=== PATIENT | male | born 1950 | race Caucasian/White ===

== ENCOUNTER 2020-10-02 11:12 | Inpatient (IN) | payer MEDICARE, OTHER ==
[~2020-10-02] VITALS: Ht 170.2 cm; Wt 61.7 kg
[~2020-10-02 11:12] MED LIST: ASPIRIN EC81 MG PO; ATORVASTATIN CA20 MG PO; BACTRIM 400-801 EACH PO; HYDRALAZINE HCL25 MG PO; KEFLEX CAP 500500 MG PO; LOPRESSOR 25 MG25 MG PO; NORVASC10 MG PO; PANTOPRAZOLE SO40 MG PO; PROSCAR5 MG PO
[2020-10-02 13:50] LABS: HEMOGLOBIN 9.5 gm/dl (14.0-17.5); RED BLOOD COUNT 3.69 M/UL (4.20-5.50); WHITE BLOOD COUNT 15.2 K/UL (4.5-11.0)
[2020-10-02] MEDS ORDERED: RENVELA800 MG PO (20:33)
[2020-10-03 04:46] LABS: HEMOGLOBIN 8.9 gm/dl (14.0-17.5); RED BLOOD COUNT 3.48 M/UL (4.20-5.50); WHITE BLOOD COUNT 11.6 K/UL (4.5-11.0)
[2020-10-06 03:37] LABS: HEMOGLOBIN 9.2 gm/dl (14.0-17.5); RED BLOOD COUNT 3.56 M/UL (4.20-5.50); WHITE BLOOD COUNT 11.9 K/UL (4.5-11.0)
[2020-10-07 11:23] LABS: HEMOGLOBIN 9.6 gm/dl (14.0-17.5); RED BLOOD COUNT 3.77 M/UL (4.20-5.50); WHITE BLOOD COUNT 14.6 K/UL (4.5-11.0)
[2020-10-08 02:37] LABS: HEMOGLOBIN 8.9 gm/dl (14.0-17.5); RED BLOOD COUNT 3.47 M/UL (4.20-5.50); WHITE BLOOD COUNT 12.9 K/UL (4.5-11.0)
[2020-10-08] MEDS ORDERED: LIDOCAINE PAIN1 EACH TOP (13:56)
[2020-10-08] MEDS ORDERED: AUGMENTIN 500-1 EACH PO (13:56)
[2020-10-08] MEDS ORDERED: TYLENOL 8 HOUR650 MG PO (13:59)
== END 2020-10-08 17:16 | disposition home or self-care (01) | DRG 193 ==
LOC: ER1 11:12 → MED SURG 4 18:14 → CDU 18:14 → MED SURG 4 10-03 00:10
PROVIDERS: Family Medicine; Internal Medicine; ADMIT Internal Medicine
PROC: 5A1D70Z Performance of Urinary Filtration, Intermittent, Less than 6 Hours Per Day (ICD-10-PCS; principal; 2020-10-04)
PROC: 5A1D70Z Performance of Urinary Filtration, Intermittent, Less than 6 Hours Per Day (ICD-10-PCS; 2020-10-06)
DX: J18.9 Pneumonia, unspecified organism (principal); J96.21 Acute and chronic respiratory failure with hypoxia; N18.6 End stage renal disease; I13.2 Hypertensive heart and chronic kidney disease with heart failure and with stage 5 chronic kidney disease, or end stage renal disease; I50.32 Chronic diastolic (congestive) heart failure; Z20.822 Contact with and (suspected) exposure to COVID-19; R07.89 Other chest pain; M25.512 Pain in left shoulder; E11.22 Type 2 diabetes mellitus with diabetic chronic kidney disease; E87.5 Hyperkalemia; I48.0 Paroxysmal atrial fibrillation; I25.10 Atherosclerotic heart disease of native coronary artery without angina pectoris; M19.90 Unspecified osteoarthritis, unspecified site; M75.102 Unspecified rotator cuff tear or rupture of left shoulder, not specified as traumatic; R77.8 Other specified abnormalities of plasma proteins; D64.9 Anemia, unspecified; D50.9 Iron deficiency anemia, unspecified; Z82.49 Family history of ischemic heart disease and other diseases of the circulatory system; Z83.3 Family history of diabetes mellitus; Z80.8 Family history of malignant neoplasm of other organs or systems; Z99.81 Dependence on supplemental oxygen; Z95.1 Presence of aortocoronary bypass graft; Z84.89 Family history of other specified conditions; Z79.82 Long term (current) use of aspirin; Z79.899 Other long term (current) drug therapy
CPT/HCPCS: 36415; 36600; 70450; 71045; 71046; 73030; 80048; 80053; 82550; 82553; 82803; 83874; 83880; 84439; 84443; 84484; 85025; 85027; 85610; 87081; 90935; 93005; 94640; 94664; 94760; 96365; 96366; 96367; 99285; J0696; J1644; J2405; J2543; J7030; U0002

== ENCOUNTER → 2020-11-16 | Outpatient (CLI) | payer MEDICARE, OTHER ==
[~2020-11-16] MED LIST changes: +8 HOUR650 MG PO; +AUGMENTIN 500-1 EACH PO; +ELIQUIS2.5 MG PO; +FINASTERIDE5 MG PO; +LIDOCAINE PAIN1 EACH TOP; +LOPRESSOR 50 MG50 MG PO; +RENVELA800 MG PO; +TYLENOL 8 HOUR650 MG PO; +VENELEX OINTMEN60 GM TOP
[2020-11-16 15:20] LABS: HEMOGLOBIN 11.4 gm/dl (14.0-17.5); RED BLOOD COUNT 4.09 M/UL (4.20-5.50); WHITE BLOOD COUNT 13.8 K/UL (4.5-11.0)
== END ==
LOC: LAB 13:03
PROVIDERS: Internal Medicine Cardiovascular Disease
DX: I48.92 Unspecified atrial flutter (principal); I48.0 Paroxysmal atrial fibrillation; I25.10 Atherosclerotic heart disease of native coronary artery without angina pectoris; J90 Pleural effusion, not elsewhere classified; Z01.812 Encounter for preprocedural laboratory examination; Z20.822 Contact with and (suspected) exposure to COVID-19
CPT/HCPCS: 36415; 71046; 80048; 85025; U0003

== ENCOUNTER 2020-11-20 09:21 | Outpatient (CLI) | payer MEDICARE, OTHER ==
[~2020-11-20] VITALS: Ht 170.2 cm; Wt 57.6 kg
[~2020-11-20 09:21] MED LIST changes: -8 HOUR650 MG PO; -ELIQUIS2.5 MG PO; -FINASTERIDE5 MG PO; -LOPRESSOR 50 MG50 MG PO; -VENELEX OINTMEN60 GM TOP
[2020-11-20] MEDS ORDERED: ELIQUIS2.5 MG PO (10:37)
[2020-11-20] MEDS ORDERED: LOPRESSOR 50 MG50 MG PO (10:38)
[2020-11-20] MEDS ORDERED: FINASTERIDE5 MG PO (10:38)
== END 2020-11-21 11:48 | disposition home or self-care (01) ==
LOC: CATH 09:21 → PROG CARE 17:08 → CATH 11-21 11:48
DX: I48.3 Typical atrial flutter (principal); I48.0 Paroxysmal atrial fibrillation; I25.10 Atherosclerotic heart disease of native coronary artery without angina pectoris; I12.9 Hypertensive chronic kidney disease with stage 1 through stage 4 chronic kidney disease, or unspecified chronic kidney disease; E11.22 Type 2 diabetes mellitus with diabetic chronic kidney disease; N18.9 Chronic kidney disease, unspecified; I49.5 Sick sinus syndrome; E11.51 Type 2 diabetes mellitus with diabetic peripheral angiopathy without gangrene; F41.9 Anxiety disorder, unspecified; K21.9 Gastro-esophageal reflux disease without esophagitis; I25.2 Old myocardial infarction; Z87.891 Personal history of nicotine dependence; Z95.1 Presence of aortocoronary bypass graft; Z82.49 Family history of ischemic heart disease and other diseases of the circulatory system; Z98.890 Other specified postprocedural states; Z88.5 Allergy status to narcotic agent; Z88.8 Allergy status to other drugs, medicaments and biological substances; Z79.01 Long term (current) use of anticoagulants; Z79.899 Other long term (current) drug therapy
CPT/HCPCS: 93005; 93609; 93620; 93621; 94760; 99152; 99153; C1730; C1733; C1766; J1200; J1644; J2250; J3010; J7040

== ENCOUNTER 2021-02-01 15:05 | Observation (INO) | payer MEDICARE, OTHER ==
[~2021-02-01] VITALS: Ht 172.7 cm; Wt 49.5 kg
[~2021-02-01 15:05] MED LIST changes: +ELIQUIS2.5 MG PO; +FINASTERIDE5 MG PO; +LOPRESSOR 50 MG50 MG PO
[2021-02-01 16:07] LABS: HEMOGLOBIN 10.9 gm/dl (14.0-17.5); RED BLOOD COUNT 3.88 M/UL (4.20-5.50); WHITE BLOOD COUNT 12.6 K/UL (4.5-11.0)
[2021-02-02 02:59] LABS: HEMOGLOBIN 11.3 gm/dl (14.0-17.5); RED BLOOD COUNT 3.99 M/UL (4.20-5.50); WHITE BLOOD COUNT 12.3 K/UL (4.5-11.0)
[2021-02-03 05:58] LABS: HEMOGLOBIN 11.4 gm/dl (14.0-17.5); RED BLOOD COUNT 4.1 M/UL (4.20-5.50); WHITE BLOOD COUNT 8.7 K/UL (4.5-11.0)
[2021-02-03 10:10] LABS: HBSAG SCREEN Negative (Negative); HEP A AB, IGM Negative (Negative); HEP B CORE AB, IGM Negative (Negative); HEP C VIRUS AB <0.1 (0.0-0.9)
== END 2021-02-03 16:30 | disposition home or self-care (01) ==
LOC: ER1 15:05 → CDU 18:38 → MED SURG 4 21:00
PROVIDERS: Emergency Medicine; Internal Medicine Nephrology; ADMIT Internal Medicine
DX: R07.89 Other chest pain (principal); I13.2 Hypertensive heart and chronic kidney disease with heart failure and with stage 5 chronic kidney disease, or end stage renal disease; E11.22 Type 2 diabetes mellitus with diabetic chronic kidney disease; N18.6 End stage renal disease; I50.32 Chronic diastolic (congestive) heart failure; D63.1 Anemia in chronic kidney disease; I25.10 Atherosclerotic heart disease of native coronary artery without angina pectoris; I48.0 Paroxysmal atrial fibrillation; E78.5 Hyperlipidemia, unspecified; N40.0 Benign prostatic hyperplasia without lower urinary tract symptoms; D50.9 Iron deficiency anemia, unspecified; R77.8 Other specified abnormalities of plasma proteins; D72.829 Elevated white blood cell count, unspecified; J96.11 Chronic respiratory failure with hypoxia; R07.81 Pleurodynia; R44.3 Hallucinations, unspecified; R64 Cachexia; Z68.1 Body mass index [BMI] 19.9 or less, adult; Z20.822 Contact with and (suspected) exposure to COVID-19; Z99.2 Dependence on renal dialysis; Z95.1 Presence of aortocoronary bypass graft; Z79.01 Long term (current) use of anticoagulants; Z79.899 Other long term (current) drug therapy; Z88.5 Allergy status to narcotic agent; Z88.8 Allergy status to other drugs, medicaments and biological substances
CPT/HCPCS: ECHO; 36415; 71045; 80048; 80053; 80074; 82550; 82553; 83874; 83880; 84484; 85025; 85027; 87040; 90935; 93005; 93306; 99285; G0257; G0378; J7030; U0002

== ENCOUNTER → 2021-02-28 | Outpatient (CLI) | payer MEDICARE, OTHER ==
[~2021-02-28] MED LIST changes: +8 HOUR650 MG PO; +VENELEX OINTMEN60 GM TOP
== END ==
LOC: CT 08:00
DX: K55.069 Acute infarction of intestine, part and extent unspecified (principal); R18.8 Other ascites; J90 Pleural effusion, not elsewhere classified
CPT/HCPCS: 36415; 82565; Q9967

== ENCOUNTER 2021-03-16 07:13 | Inpatient (IN) | payer OTHER ==
[~2021-03-16] VITALS: Ht 172.7 cm; Wt 56.5 kg
[~2021-03-16 07:13] MED LIST changes: -8 HOUR650 MG PO; -VENELEX OINTMEN60 GM TOP
[2021-03-16 08:38] LABS: RED BLOOD COUNT 3.74 M/UL (4.20-5.50); WHITE BLOOD COUNT 9.8 K/UL (4.5-11.0)
[2021-03-16] MEDS ORDERED: 8 HOUR650 MG PO (11:07)
[2021-03-16] MEDS ORDERED: VENELEX OINTMEN60 GM TOP (11:08)
[2021-03-16 18:09] LABS: BORDETELLA PARAPERTUSSIS Not Detected (Not Detectd); BORDETELLA PERTUSSIS Not Detected (Not Detectd); CORONAVIRUS HKU1 Not Detected (Not Detectd); CORONAVIRUS NL63 Not Detected (Not Detectd); CORONOAVIRUS 229E Not Detected (Not Detectd); HUMAN METAPNEUMOVIRUS Not Detected (Not Detectd); HUMAN RHINOVIRUS/ENTEROVIRUS Not Detected (Not Detectd); INFLUENZA A Not Detected (Not Detectd); INFLUENZA B Not Detected (Not Detectd); PARAINFLUENZA VIRUS 1 Not Detected (Not Detectd); PARAINFLUENZA VIRUS 2 Not Detected (Not Detectd); PARAINFLUENZA VIRUS 3 Not Detected (Not Detectd); PARAINFLUENZA VIRUS 4 Not Detected (Not Detectd); RESPIRATORY SYNCYTIAL VIRUS Not Detected (Not Detectd)
[2021-03-16 18:10] LABS: CHLAMYDIA PNEUMONIAE Not Detected (Not Detectd); MYCOPLASMA PNEUMONIAE Not Detected (Not Detectd)
[2021-03-16 19:07] LABS: CORONAVIRUS OC43 DETECTED (Not Detectd); SARS-CoV-2 NOT DETECTED (Not Detectd)
[2021-03-17 03:52] LABS: HEMOGLOBIN 11.1 gm/dl (14.0-17.5); RED BLOOD COUNT 3.7 M/UL (4.20-5.50); WHITE BLOOD COUNT 11.3 K/UL (4.5-11.0)
--- NOTE | 2021-03-17 10:38 | NUR ---
PT CONSENT TO BE SIGNED BY PT IN AM. ORDERED US GUIDED PLEURAL CATHETER PLACEMENT PER DR SMITH. PER HOLD ASA, DRAW PT, PTT, INR, PLT IN AM.
--- NOTE | 2021-03-17 13:29 | NUR ---
INFORM DR George THAT PATIENTS IS HERE AND WOULD BE THE ONE TO SIGN ANY CONSENTS FOR THE PATIENT. HE STATES HE WILL BE ON THE FLOOR SOON TO SPEAK TO HER.
--- NOTE | 2021-03-17 16:31 | NUR ---
PT SEEN BY DR MELISSA THIS EVENING. STATES HE CAN NOT TOLERATE DIALYSIS PRESENTLY. STATES HE WANTS A RENAL DIET FOR NOW THEN NPO AFTER MIDNIGHT. INFORM DR SALINAS HE HAS HYDRONEPHROSIS AND PASS THIS INFORMATION TO THE UROLOGIST. PT STILL RECEIVING CBI. MESSAGE SENT TO DR SALINAS
[2021-03-18 02:35] LABS: HEMOGLOBIN 10.2 gm/dl (14.0-17.5); RED BLOOD COUNT 3.47 M/UL (4.20-5.50)
[2021-03-18 02:43] LABS: WHITE BLOOD COUNT 15.7 K/UL (4.5-11.0)
--- NOTE | 2021-03-19 12:09 | NUR ---
spoke with patients almaz regarding patient condition worsening. pt states she just wants him to be comfortable. Stated she couldn't come up because she couldn't watch him . md notified. levophed stopped. pts brother at bedside.
--- NOTE | 2021-03-19 13:55 | NUR ---
PT PRONOUNCED AT 1337 BY 2 NURSES.NO S/S OF LIFE, NO RESP, NO HEARTBEAT. PTS BROTHER AT THE BEDSIDE. NOTIFIED OF . NOTIFIED. [facility] CONTACTED, RULED OUT FOR DONATION (REF #[id number]. [facility] CALLED PER FAMILY REQUEST.
== END 2021-03-19 13:37 | disposition expired | DRG 871 ==
LOC: ER1 07:13 → PROG CARE 10:11 → CDU 10:11 → PROG CARE 15:48
PROVIDERS: Emergency Medicine; Internal Medicine Pulmonary Disease; ADMIT Internal Medicine
PROC: 5A09457 Assistance with Respiratory Ventilation, 24-96 Consecutive Hours, Continuous Positive Airway Pressure (ICD-10-PCS; principal; 2021-03-16)
DX: A41.52 Sepsis due to Pseudomonas (principal); R65.21 Severe sepsis with septic shock; Z20.822 Contact with and (suspected) exposure to COVID-19; J69.0 Pneumonitis due to inhalation of food and vomit; T81.41XA Infection following a procedure, superficial incisional surgical site, initial encounter; Z66 Do not resuscitate; Z51.5 Encounter for palliative care; I50.31 Acute diastolic (congestive) heart failure; E43 Unspecified severe protein-calorie malnutrition; N18.6 End stage renal disease; G93.41 Metabolic encephalopathy; J96.21 Acute and chronic respiratory failure with hypoxia; J96.22 Acute and chronic respiratory failure with hypercapnia; J18.9 Pneumonia, unspecified organism; J44.1 Chronic obstructive pulmonary disease with (acute) exacerbation; S21.109A Unspecified open wound of unspecified front wall of thorax without penetration into thoracic cavity, initial encounter; I13.2 Hypertensive heart and chronic kidney disease with heart failure and with stage 5 chronic kidney disease, or end stage renal disease; E87.2 Acidosis; J90 Pleural effusion, not elsewhere classified; Z68.1 Body mass index [BMI] 19.9 or less, adult; L89.151 Pressure ulcer of sacral region, stage 1; R62.7 Adult failure to thrive; J22 Unspecified acute lower respiratory infection; E87.6 Hypokalemia; D69.6 Thrombocytopenia, unspecified; Y83.8 Other surgical procedures as the cause of abnormal reaction of the patient, or of later complication, without mention of misadventure at the time of the procedure; I25.10 Atherosclerotic heart disease of native coronary artery without angina pectoris; X58.XXXA Exposure to other specified factors, initial encounter; I48.0 Paroxysmal atrial fibrillation; E78.5 Hyperlipidemia, unspecified; N40.0 Benign prostatic hyperplasia without lower urinary tract symptoms; D50.9 Iron deficiency anemia, unspecified; Z88.6 Allergy status to analgesic agent; Z88.8 Allergy status to other drugs, medicaments and biological substances; Z95.1 Presence of aortocoronary bypass graft; Y92.89 Other specified places as the place of occurrence of the external cause; Z82.49 Family history of ischemic heart disease and other diseases of the circulatory system; Z83.438 Family history of other disorder of lipoprotein metabolism and other lipidemia; Z83.3 Family history of diabetes mellitus; Z80.8 Family history of malignant neoplasm of other organs or systems; Z99.2 Dependence on renal dialysis
CPT/HCPCS: 36415; 36600; 70450; 71045; 71250; 80053; 80202; 82140; 82550; 82553; 82803; 83605; 83615; 83735; 83874; 83880; 84100; 84484; 85025; 85384; 85610; 85730; 86140; 87040; 87070; 87077; 87081; 87186; 87205; 87633; 92610; 93005; 94640; 94660; 94664; 94760; 96374; 99285; J0696; J1644; J2270; J2543; J2760; J2920; J3370; J7040; J7070; Q9967; U0002